=== PATIENT | female | born 1950 | race Two or more races ===

== ENCOUNTER → 2019-07-08 | Outpatient (CLI) | payer MEDICARE ==
[2019-07-08 13:03] LABS: ALANINE AMINOTRANSFERASE 35 U/L (12-78); ALBUMIN 4.1 g/dL (3.4-5.0); ANION GAP 7 mmol/L (5-15); CALCIUM 9.2 mg/dL (8.5-10.1); CHLORIDE 103 mmol/L (98-107); CREATININE 0.88 mg/dL (0.55-1.02)
[2019-07-08 13:08] LABS: ALKALINE PHOSPHATASE 150 U/L (45-117); CHOL/HDL RATIO 8.3; CHOLESTEROL, TOTAL 322 mg/dL (140-239); HDL CHOL % 12 % (28-40); HDL CHOLESTEROL (DIRECT) 39 mg/dL (40-60); TOTAL PROTEIN 8.1 g/dL (6.4-8.2); TRIGLYCERIDES 584 mg/dL (50-200)
== END | disposition home or self-care (01) ==
LOC: CVU 12:33 → MERGE 12:33
PROVIDERS: ATTEND Internal Medicine Cardiovascular Disease
DX: I08.3 Combined rheumatic disorders of mitral, aortic and tricuspid valves (principal); E11.9 Type 2 diabetes mellitus without complications; I10 Essential (primary) hypertension; I25.10 Atherosclerotic heart disease of native coronary artery without angina pectoris; Z79.01 Long term (current) use of anticoagulants; Z95.1 Presence of aortocoronary bypass graft; Z95.2 Presence of prosthetic heart valve
CPT/HCPCS: 36415; 80053; 80061; 82043; 82570; 83036; 93306; 93356

== ENCOUNTER 2019-07-10 10:03 | Outpatient (CLI) | payer MEDICARE ==
[2019-07-10] MEDS ORDERED: REGADENOSON 0.4 MG/5 ML SYRINGE ONE (11:26)
== END 2019-07-10 23:59 | disposition home or self-care (01) ==
LOC: RAD 10:03
PROVIDERS: ATTEND Internal Medicine Cardiovascular Disease
DX: Z02.9 Encounter for administrative examinations, unspecified (principal)
CPT/HCPCS: J2785

== ENCOUNTER 2019-07-10 12:39 | Outpatient (CLI) | payer MEDICARE ==
[~2019-07-10 12:39] MED LIST: REGADENOSON 0.4 MG/5 ML SYRINGE ONE
== END 2019-07-10 23:59 | disposition home or self-care (01) ==
LOC: CFH 12:39
PROVIDERS: ATTEND Internal Medicine Cardiovascular Disease
DX: I25.10 Atherosclerotic heart disease of native coronary artery without angina pectoris (principal); I35.0 Nonrheumatic aortic (valve) stenosis
CPT/HCPCS: 78452; 93017; A9502; J2785